=== PATIENT | female | born 1985 | race Caucasian/White ===

== ENCOUNTER 2016-09-15 11:05 | Inpatient (IN) | payer OTHER ==
[2016-09-15] MEDS ORDERED: LACTATED RINGERS 1,000 ML ONE (11:41)
[2016-09-15] MEDS ORDERED: SUBLIMAZE IV PRN (11:47)
[2016-09-15] MEDS ORDERED: ePHEDrine SULFATE IV PRN (11:47)
[2016-09-15] MEDS ORDERED: BRETHINE SUB-Q PRN (11:47)
[2016-09-15] MEDS ORDERED: ZOFRAN IV PRN (11:47)
[2016-09-15] MEDS ORDERED: STADOL IV PRN (11:47)
[2016-09-15] MEDS ORDERED: MINERAL OIL PO PRN (11:47)
[2016-09-15] MEDS ORDERED: BRETHINE IVP PRN (11:47)
[2016-09-15] MEDS ORDERED: NARCAN 0.4 MG/1 ML IV PRN (11:47)
[2016-09-15] MEDS ORDERED: XYLOCAINE 2% INFILTRATI ONE (11:47)
[2016-09-15] MEDS ORDERED: PITOCin/NS 20 UNIT/1000ML DRIP 20 UNITS/1,000 ML BAG IV SCH (12:00)
[2016-09-15] MEDS ORDERED: LACTATED RINGERS 1,000 ML IV SCH (12:00)
[2016-09-15] MEDS ORDERED: PITOCin/NS 30 UNIT/500ML 30 UNITS/500 ML BAG IV SCH (12:00)
--- NOTE | 2016-09-15 12:02 | History and Physical Report ---
History of Present Illness Date of examination: 09/15/16 Date of admission: 09/15/16 11:18 Chief complaint: Intense Labor Pains History of present illness: Received care at [facility], patient was non-compliant with visits. Gestational Diabetes, Diet Controlled, States she checked blood glucose 4XD and numbers were controlled. Past History Past Medical History: hematologic disorders (anemia) Past Surgical History: cholecystectomy (2011), [employer]/uterine surgery (2012: D&C) Family/Genetic History: diabetes (Mother and Father) Social history: no significant social history - Obstetrical History Expected Date of Delivery: 10/15/16 Actual Gestation: 35 Week(s) 5 Day(s) : 7 Para: 4 Hx # Term Pregnancies: 2 Number of Pregnancies: 2 Spontaneous Abortions: 1 Induced : 1 Number of Living Children: 4 #1 Gender: Male year: 2,[birth year] Birthweight: 3.175 kg Method of Delivery: Vaginal Gestational age at delivery: 39 Complications: none #2 Infant Gender: Male year: 2,[birth year] Birthweight: 2.722 kg Method of Delivery: Vaginal Gestational age at delivery: 39 Complications: none #3 Infant Gender: Male year: 2,[birth year] Birthweight: 2.722 kg Method of Delivery: Vaginal Gestational age at delivery: 36 #4 Infant Gender: Female year: 2,015 Birthweight: 2.722 kg Method of Delivery: Vaginal Gestational age at delivery: 36 Medications and Allergies Allergies Allergy/AdvReac Type Severity Reaction Status Date / Time No Known Allergies Allergy Verified 07/21/14 10:48 Home Medications Medication Instructions Recorded Confirmed Last Taken Type Cephalexin [Keflex] 500 mg PO Q12HR #20 cap 07/11/15 Unknown Rx Sulfamethoxazole/Trimethoprim 1 each PO BID #10 tablet 07/11/15 Unknown Rx [Bactrim DS TAB] traMADol [Ultram] 50 mg PO Q6HR PRN #12 tablet 07/11/15 Unknown Rx Active Meds: Active Medications Butorphanol Tartrate (Stadol) 2 mg IV Q2H PRN PRN Reason: Pain , Severe (7-10) Fentanyl (Sublimaze) 100 mcg IV Q2H PRN PRN Reason: Labor Pain Lactated Ringer's (Lactated Ringers) 1,000 mls @ 125 mls/hr IV DIRECT VANESSA Oxytocin/Sodium Chloride (Pitocin/Ns 20 Unit/1000ml Drip) 20 units in 1,000 mls @ 125 mls/hr IV DIRECT VANESSA Oxytocin/Sodium Chloride (Pitocin/Ns 30 Unit/500ml) 30 units in 500 mls @ 2 mls /hr IV TITR VANESSA PRN Reason: Protocol Mineral Oil (Mineral Oil) 30 ml PO QHS PRN PRN Reason: Constipation Naloxone HCl (Narcan 0.4 Mg/1 Ml) 0.1 mg IV Q2MIN PRN PRN Reason: Res Rate </= 8 or 02 SAT < 92% Ondansetron HCl (Zofran) 4 mg IV Q8H PRN PRN Reason: Nausea And Vomiting Review of Systems All systems: negative - Vital Signs Vital signs: Vital Signs Pulse Pulse Ox 65 96 09/15/16 11:22 09/15/16 11:22 Temp Pulse Resp BP Pulse Ox 69 0 L 09/15/16 11:45 09/15/16 11:45 - Physical Exam Breasts: Positive: normal Cardiovascular: Regular rate Lungs: Positive: Clear to auscultation, Normal air movement Abdomen: Positive: normal appearance, soft, normal bowel sounds Genitourinary (Female): Positive: normal external genitalia, normal perenium Uterus: Positive: enlarged Anus/Rectum: Positive: normal perianal skin Extremities: Positive: normal - Obstetrical FHR: category 1 Uterine Contraction Monitor Mode: External Cervical Dilatation: 6 (VtX, Intact) Cervical Effacement Percentage: 90 station: -2 Uterine Contraction Frequency (min): 2-3 Uterine Contraction Pattern: Regular Uterine Tone Measurement Phase: Resting Uterine Contraction Intensity: Moderate Results All other labs normal. Assessment and Plan A: IUP @ 35 5/7 Weeks Active Labor GDM A1 GBS Unknown P: Admit to L&D per routine orders GBS prophylaxis Accuchecks q 4 Active labor
[2016-09-15 12:07] LABS: Hematocrit 30.5 % (30.3-42.9); Hemoglobin 9.9 gm/dl (10.1-14.3); Mean Corpuscular HGB Conc 32 % (30-34); Mean Corpuscular Volume 73 fl (79-97); Platelet Count 448 K/mm3 (140-440); Red Blood Count 4.16 M/mm3 (3.65-5.03); Red Cell Distribution Width 15.1 % (13.2-15.2); White Blood Count 6.5 K/mm3 (4.5-11.0)
[2016-09-15 12:12] LABS: Mean Corpuscular Hemoglobin 24 pg (28-32)
[2016-09-15] MEDS ORDERED: POLYCILLIN/NS 2 GM/100 ML 2 GM/100 ML BAG IV ONE (12:12)
--- NOTE | 2016-09-15 12:35 | Progress Note ---
Assessment and Plan A: IUP @ 35 5/7 Weeks Active Labor GDM A1 GBS Unknown P: AROM Continue GBS Prophylaxis Accuchecks q 4 Active labor Subjective - Subjective Date of service: 09/15/16 Interval history: Received care at [facility], patient was non-compliant with visits. Gestational Diabetes, Diet Controlled, States she checked blood glucose 4XD and numbers were controlled. Patient reports: loss of fluid, movement normal, contractions Objective - Vital Signs Vital Signs: Vital Signs - 12hr 09/15/16 09/15/16 09/15/16 11:22 11:23 11:24 Pulse Rate 65 72 82 O2 Sat by Pulse 96 95 97 Oximetry 09/15/16 09/15/16 09/15/16 11:25 11:26 11:27 Pulse Rate 79 73 64 O2 Sat by Pulse 97 96 97 Oximetry 09/15/16 09/15/16 09/15/16 11:29 11:30 11:31 Pulse Rate 72 79 64 O2 Sat by Pulse 99 99 98 Oximetry 09/15/16 09/15/16 09/15/16 11:32 11:33 11:34 Pulse Rate 71 75 72 O2 Sat by Pulse 98 99 99 Oximetry 09/15/16 09/15/16 09/15/16 11:35 11:36 11:37 Pulse Rate 77 72 73 O2 Sat by Pulse 99 98 97 Oximetry 09/15/16 09/15/16 09/15/16 11:38 11:39 11:40 Pulse Rate 71 75 68 O2 Sat by Pulse 99 97 99 Oximetry 09/15/16 09/15/16 09/15/16 11:41 11:42 11:43 Pulse Rate 73 79 72 O2 Sat by Pulse 99 97 99 Oximetry 09/15/16 09/15/16 09/15/16 11:44 11:45 11:58 Pulse Rate 69 69 70 O2 Sat by Pulse 99 0 L 98 Oximetry 09/15/16 09/15/16 09/15/16 12:01 12:03 12:08 Pulse Rate 64 73 68 O2 Sat by Pulse 77 L 98 99 Oximetry 09/15/16 09/15/16 09/15/16 12:13 12:18 12:23 Pulse Rate 67 79 71 O2 Sat by Pulse 99 98 97 Oximetry 09/15/16 12:28 Pulse Rate 68 O2 Sat by Pulse 98 Oximetry - Exam Breasts: normal Cardiovascular: Regular rate Abdomen: Present: normal appearance FHR: category 1 Uterine Contraction Monitor Mode: External Cervical Dilatation: 7 (Large amount of thick Meconium stained fluids upon AROM at 1225) Cervical Effacement Percentage: 90 station: 0 Uterine Contraction Frequency (min): 1.5 Uterine Contraction Pattern: Regular Uterine Tone Measurement Phase: Contraction Uterine Contraction Intensity: Strong/Firm Extremities: normal - Labs Labs: Abnormal Labs 09/15/16 11:35 Hgb 9.9 L MCV 73 L MCH 24 L Plt Count 448 H Laboratory Results - last 24 hr 09/15/16 11:35 WBC 6.5 RBC 4.16 Hgb 9.9 L Hct 30.5 MCV 73 L MCH 24 L MCHC 32 RDW 15.1 Plt Count 448 H
[2016-09-15] MEDS ORDERED: TUCKS PAD TP PRN (13:06)
[2016-09-15] MEDS ORDERED: NORCO 5/325 PO PRN (13:06)
[2016-09-15] MEDS ORDERED: BENADRYL PO PRN (13:06)
[2016-09-15] MEDS ORDERED: DULCOLAX PR PRN (13:06)
[2016-09-15] MEDS ORDERED: MILK OF MAGNESIA PO PRN (13:06)
[2016-09-15] MEDS ORDERED: LANSINOH TP PRN (13:06)
--- NOTE | 2016-09-15 13:17 | Procedure Note ---
OB Delivery Note - Delivery Date of Delivery: 09/15/16 (1256) Surgeon: RITA FLAHERTY Estimated blood loss: 200cc - Vaginal Delivery presentation: vertex Delivery position: OA Intrapartum events: labor-<37 weeks, meconium, other(please specify) ( GDM A1) Delivery induction: none Delivery augmentation: rupture of membranes Delivery monitor: external FHT, external uterine Route of delivery: Delivery placenta: spontaneous Delivery cord: 3 umbilical vessels Episiotomy: none Delivery laceration: none Anesthesia: none Delivery comments: of a live 7'1 male over a intact perineum under IV pain control with Apgars of 8 and 9 at 1256 on 09/15/2016. Cord clamped and cut by MIRYAM Flaherty, not stimulated and handed directly to awaiting NICU/RESP team due to meconuim stained fluids. Spontaneous delivery of placenta complete and intact with Moya side presenting at 1259. Fundus is firm and midline located 4 below the U. Lochia is scant. Placenta to pathology. Cord blood collected. GBS prophylaxis x 1. - Infant A at 1 minute: 8 at 5 minutes: 9 Infant Gender: Male (7'1)
[2016-09-15] MEDS ORDERED: SODIUM CHLORIDE FLUSH SYRINGE 10 ML IV NR (14:00)
[2016-09-15] MEDS ORDERED: POLYCILLIN/NS 1 GM/50 ML 1 GM/50 ML BAG IV SCH (14:00)
[2016-09-15] MEDS: MOTRIN PO SCH (16:07)
[2016-09-15] MEDS: FEOSOL PO SCH (20:44)
[2016-09-16] MEDS: MOTRIN PO SCH ×3 (01:47→17:33)
[2016-09-16] MEDS: COLACE PO SCH ×2 (01:48→10:45)
[2016-09-16 01:50] LABS: Hematocrit 27.5 % (30.3-42.9)
[2016-09-16] MEDS: FEOSOL PO SCH ×2 (09:30→16:30)
--- NOTE | 2016-09-16 09:54 | Discharge Summary ---
Providers - Providers Date of Admission: 09/15/16 11:18 Date of discharge: 09/17/16 Attending physician: URI ELIAS MD Primary care physician: ROOFING TECHNICIAN Hospitalization Reason for admission: active labor Delivery: Episiotomy: none Laceration: none complications: none Discharge diagnosis: IUP at term delivered baby: male Condition at discharge: Good Disposition: DC-01 TO HOME OR SELFCARE Plan - Provider Discharge Summary Activity: routine, no sex for 6 weeks, no strenuous exercise Diet: routine Instructions: routine Additional instructions: [] Smoking cessation referral if applicable(refer to patient education folder for contact #) [] Refer to [facility]'s [facility] Booklet Call your doctor immediately for: * Fever > 100.5 * Heavy vaginal bleeding ( >1 pad per hour) * Severe persistent headache * Shortness of breath * Reddened, hot, painful area to leg or breast * Drainage or odor from incision. * Keep incision clean and dry at all times and follow doctor's instructions regarding bathing/showering - Follow up plan Follow up: [facility] [Provider Group] - 6 Weeks
--- NOTE | 2016-09-16 09:54 | Progress Note ---
Assessment and Plan A: PPD #1 - stable P: Discharge home in am Subjective - Subjective Date of service: 09/16/16 Patient reports: appetite normal : doing well Objective - Vital Signs Latest vital signs: Vital Signs Temp Pulse Resp BP Pulse Ox 09/16/16 08:00 98.2 F 68 20 102/59 09/16/16 00:00 98.4 F 92 H 20 91/50 09/15/16 20:10 98.2 F 58 L 20 94/52 09/15/16 16:30 98.8 F 78 18 124/78 09/15/16 12:58 68 89 09/15/16 12:53 92 09/15/16 12:50 50 L 84 09/15/16 12:48 85 100 09/15/16 12:43 71 100 09/15/16 12:40 84 92 09/15/16 12:38 85 100 09/15/16 12:33 75 100 09/15/16 12:31 81 84 09/15/16 12:28 68 98 09/15/16 12:23 71 97 09/15/16 12:18 79 98 09/15/16 12:13 67 99 09/15/16 12:08 68 99 09/15/16 12:03 73 98 09/15/16 12:01 64 77 L 09/15/16 11:58 70 98 09/15/16 11:45 69 0 L 09/15/16 11:44 69 99 09/15/16 11:43 72 99 09/15/16 11:42 79 97 09/15/16 11:41 73 99 09/15/16 11:40 68 99 09/15/16 11:39 75 97 09/15/16 11:38 71 99 09/15/16 11:37 73 97 09/15/16 11:36 72 98 09/15/16 11:35 77 99 09/15/16 11:34 72 99 09/15/16 11:33 75 99 09/15/16 11:32 71 98 09/15/16 11:31 64 98 09/15/16 11:30 79 99 09/15/16 11:29 72 99 09/15/16 11:27 64 97 09/15/16 11:26 73 96 09/15/16 11:25 79 97 09/15/16 11:24 82 97 09/15/16 11:23 72 95 09/15/16 11:22 65 96 Intake and Output 09/15/16 09/16/16 09/16/16 22:59 06:59 14:59 Intake Total 360 240 120 Balance 360 240 120 Intake: Oral 360 240 120 Other: Total, Intake Amount 120 240 120 # Voids Void 1 1 1 Estimated Blood Loss 200 - Exam Breasts: Present: deferred Cardiovascular: Present: Regular rate Lungs: Present: Clear to auscultation Abdomen: Present: soft Vulva: both: normal Uterus: Present: fundal height below umbilicus Extremities: Present: normal Deep Tendon Reflex Grade: Normal +2 - Labs Labs: Abnormal lab results 09/15/16 09/16/16 Range/Units 11:35 01:13 Hgb 9.9 L 9.0 L (10.1-14.3) gm/dl Hct 27.5 L (30.3-42.9) % MCV 73 L (79-97) fl MCH 24 L (28-32) pg Plt Count 448 H (140-440) K/mm3
[2016-09-16] MEDS: PRENATAL VITAMIN PO SCH (10:45)
[2016-09-17] MEDS: MOTRIN PO SCH ×3 (06:29→16:42)
[2016-09-17] MEDS: PRENATAL VITAMIN PO SCH (12:00)
[2016-09-17] MEDS: FEOSOL PO SCH ×2 (16:41)
[2016-09-17] MEDS: COLACE PO SCH (16:41)
[2016-09-17 18:42] VITALS: BP 118/65
== END 2016-09-17 17:40 | disposition home or self-care (01) | DRG 775 ==
LOC: TRG 11:05 → LD 11:18 → OB 14:59
PROVIDERS: ADMIT Obstetrics & Gynecology; ATTEND Obstetrics & Gynecology
PROC: 10E0XZZ Delivery of Products of Conception, External Approach (ICD-10-PCS; principal; 2016-09-15)
DX: O60.14X0 Preterm labor third trimester with preterm delivery third trimester, not applicable or unspecified (principal); O24.420 Gestational diabetes mellitus in childbirth, diet controlled; O77.0 Labor and delivery complicated by meconium in amniotic fluid; O75.89 Other specified complications of labor and delivery; D75.9 Disease of blood and blood-forming organs, unspecified; Z3A.35 35 weeks gestation of pregnancy; Z37.0 Single live birth; Z91.14 Patient's other noncompliance with medication regimen; Z90.49 Acquired absence of other specified parts of digestive tract; Z83.3 Family history of diabetes mellitus
CPT/HCPCS: 36415; 82962; 85014; 85018; 85027; 86592; 86850; 86900; 86901; 88307; 99211; A6250; G0463; J0290; J2590; J3010; J7120